=== PATIENT | female | born 1985 | race Caucasian/White ===

== ENCOUNTER 2023-04-13 07:27 | Outpatient (CLI) | payer BC, SELFPAY | END 2023-04-13 07:28 | disposition home or self-care (01) | LOC: NFLDREF 04-14 12:29 | PROVIDERS: PCP Family Medicine; Referring Provider Family Medicine; Visit Provider Family Medicine | DX: R53.83 Other fatigue (principal) | CPT/HCPCS: 80053; 83520; 84443 ==

== ENCOUNTER 2024-06-01 11:57 | Outpatient (CLI) | payer BC, SELFPAY | END 2024-06-01 11:58 | disposition home or self-care (01) | PROVIDERS: PCP Family Medicine; Visit Provider Family Medicine | DX: D50.9 Iron deficiency anemia, unspecified (principal) | CPT/HCPCS: 80048; 82728; 83540; 83550 ==

== ENCOUNTER 2024-06-29 11:45 | Outpatient (RCR) | payer BC, SELFPAY ==
--- NOTE | 2024-06-09 10:10 | ONC.NURNOTE ---
Diagnosis: Iron Deficiency Anemia
--- NOTE | 2024-06-12 15:43 | URNOTE ---
PA is not required for Venofer ([id number])
[2024-06-14 13:05] VITALS: BP 103/63; PULSE 80; RESP 19; TEMP 37.1; O2SAT 99
[2024-06-14] MEDS: IRON SUCROSE COMPLEX 200 MG in 0.9 % SODIUM CHLORIDE 100 ml 100 ML 440 MG IVPB (13:37)
[2024-06-14 13:55] VITALS: BP 114/59; PULSE 69; RESP 16; O2SAT 99
[2024-06-16 13:10] VITALS: BP 109/57; PULSE 88; RESP 22; TEMP 36.2; O2SAT 98
[2024-06-16] MEDS: IRON SUCROSE COMPLEX 200 MG in 0.9 % SODIUM CHLORIDE 100 ml 100 ML 440 MG IVPB (13:31)
[2024-06-16 13:50] VITALS: BP 110/73; PULSE 70; RESP 16; O2SAT 98
[2024-06-20 13:00] VITALS: BP 107/72; PULSE 98; RESP 16; TEMP 36.4; O2SAT 98
[2024-06-20] MEDS: IRON SUCROSE COMPLEX 200 MG in 0.9 % SODIUM CHLORIDE 100 ml 100 ML 440 MG IVPB (13:16)
[2024-06-20 13:30] VITALS: BP 111/74; PULSE 97; RESP 16; TEMP 36.7; O2SAT 98
[2024-06-20 14:05] VITALS: BP 104/71; PULSE 98; RESP 16; TEMP 36.5; O2SAT 97
[2024-06-27 13:05] VITALS: BP 114/77; PULSE 75; RESP 18; TEMP 35.8; O2SAT 98
[2024-06-27] MEDS: IRON SUCROSE COMPLEX 200 MG in 0.9 % SODIUM CHLORIDE 100 ml 100 ML 440 MG IVPB (13:15)
[2024-06-27] MEDS: SODIUM CHLORIDE 0.9 % (FLUSH) 10 ML SYRINGE IVF (13:16)
[2024-06-27 13:55] VITALS: BP 114/74; PULSE 84; RESP 16; TEMP 36.5; O2SAT 98
[2024-06-29 11:52] VITALS: BP 119/70; PULSE 82; RESP 18; TEMP 36.4; O2SAT 98
[2024-06-29] MEDS: SODIUM CHLORIDE 0.9 % (FLUSH) 10 ML SYRINGE IVF (12:37)
[2024-06-29] MEDS: IRON SUCROSE COMPLEX 200 MG in 0.9 % SODIUM CHLORIDE 100 ml 100 ML 440 MG IVPB (12:39)
[2024-06-29 13:30] VITALS: BP 120/83; PULSE 86; RESP 14; TEMP 36.6; O2SAT 98
== END 2024-12-11 23:59 | disposition home or self-care (01) ==
LOC: CCIC 11:45
PROVIDERS: PCP Family Medicine; Referring Provider Family Medicine; Visit Provider Family Medicine
DX: D50.9 Iron deficiency anemia, unspecified (principal)
CPT/HCPCS: 96365; 96374; J1756; J7050

== ENCOUNTER 2024-12-20 08:41 | Outpatient (CLI) | payer BC, SELFPAY | END 2024-12-20 08:42 | disposition home or self-care (01) | PROVIDERS: PCP Family Medicine; Visit Provider Family Medicine | DX: Z13.9 Encounter for screening, unspecified (principal); R53.83 Other fatigue | CPT/HCPCS: 80048; 80061; 82728; 85025 ==

== ENCOUNTER 2025-02-13 10:01 | Emergency (ER) | payer BC, SELFPAY ==
[2025-02-13 10:14] VITALS: BP 124/79; PULSE 90; RESP 16; TEMP 36.3; O2SAT 99
--- OUTSIDE RECORDS SUMMARY | 2025-02-13 10:16 | XMS_ITS | Clinical Summary ---
Author Organization [employer] [facility] Address [facility] [place] [address] Care Team Providers Care Assistant Chief Engineer Name Role Phone Susanne Ignacio MD Unavailable [phone] Corinne Cueto NP Unavailable Rayray Garibay MD Primary Care Provider + Allergies Active Allergy Reactions Criticality Noted Date Comments Amoxicillin Other - Describe In Comment Field Low 06/19/2013 Resistant ##No similarities in side chains, very low to no risk of cross-sensitivity to ANCEF. ANW Antimicrobial Stewardship Team 12/2018 Azithromycin Rash 06/19/2011 Has had recently w/ no reaction Sodium Hypochlorite Solution Shortness Of Breath,Throat Swelling/Closing,A ngioedema,Cough,Fl ushing,Hives,Rash, Runny Nose High 01/09/2020 Sulfa (Sulfonamide Antibiotics) Rash Low 06/19/2013 Medications valACYclovir (VALTREX) 1 gram tabletIndications: Herpes simplex vulvovaginitis Take 1 tablet by mouth once daily. 90 tablet 3 05/04/19 18 Active Additional Information Patient taking differently:1 g Oral DAILY,Will start at 36 weeks, Informant: Patient's Recall, Reported on 01/31/2020 escitalopram oxalate (LEXAPRO) 20 mg tablet Take 20 mg by mouth at bedtime. 06/18/19 19 Active buPROPion (WELLBUTRIN XL) 300 mg Extended-Release tablet TK 1 T PO D 09/20/19 20 Active Xarelto 10 mg tabletIndications: Thoracic outlet syndrome,Deep vein thrombosis (DVT) of axillary vein of right upper extremity, unspecified chronicity (HC) TAKE 1 TABLET BY MOUTH EVERY DAY 30 Tablet 11 11/05/19 22 Active EPINEPHrine (EPIPEN) 0.3 mg/0.3 mL auto-injector 06/17/19 22 Active LORazepam (Ativan) 0.5 mg tab Take 1 mg by mouth at bedtime if needed. Active Active Problems Patient Care Coordination No te Formatting of this note migh t be different from the original. There is a resolved Delivery Plan of Care which has been moved to a progress note under Case Management tab dated 04/20/18 by Cira Birmingham RN .................... 04/20/2018 9:36 AM Problem Noted Date Diagnosed Date Depression 02/05/2020 Tobacco dependency 02/05/2020 Overview (02/05/2020): IMO Update 12/23 Thoracic outlet syndrome 01/31/2020 S/P Repeat section 04/13/2018 [facility] Supervision of high-risk 8 Overview (04/05/2018): [facility] OB PATIENT (CONSULT: 12/01/17, DEJAH to [facility] on 03/01/18) There is an inpatient plan of care available for this patient. NEXT VISIT ALERTS: 04/06: Written instructions for C/S needed at H&P visit. C/ 0730 04/13/[address] Jacobs -- DO NOT EXCISE OR REMOVE MESH, JUST CUT RIGHT THROUGH AND CLOSE BACK UP PLANS & FUTURE APPOINTMENTS: - OB visits through: 04/06/18. Needs Weekly TESTING PLAN: No more testing needed per Dr. Lopez 03/17/18 Growth WNL - Testing through: 04/06/18 GROWTH PLAN: serial assessments of growth at 28 weeks and 34 weeks - Next Growth U/S: 03/17/18 DELIVERY PLAN: Repeat LTCS - Scheduled delivery: 04/13/[address] at [address] Burroughs from general surgery - Preferred delivery location: [place] PRIMARY DIAGNOSIS: 32 y.o. 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 (Negative for malignancy) - MESH IN PLACE Hx Axillary DVT secondary to Thoracic outlet syndrome status post first rib resection Hx C/S 2015 39w5d - intolerance/IUGR Hx SAB X 2 Pelvic deformity-left rotated 30 degrees Hx cryotherapy to cervix Genital HSV ADHD Anxiety LAST GROWTH: 03/17/18 35w3d EFW 2685 grams, percentile = 41% 01/28/18 28w5d EFW 1264 grams, percentile: 40 (PCP) 12/01/17 20w2d EFW 353 grams, percentile: 52 09/10/17 8w4d REFERRING PHYSICIAN/PHONE/LAST UPDATE: Rayray Garibay [facility] [phone] Primary MD approves scheduling of recommended ultrasounds/testing: Not specified SPECIALISTS/CONSULTS: General Surgeon Dr Honorio Jacobs performed Wide local excision of left lower abdominal wall desmoid tumor with complex reconstruction. MATERNAL CARE COORDINATION: Ruby Johnson RN, [id number]; Cira Birmingham RN [id number] MPP MOMS Maternal Care Coordination Chart review completed 03/25/18 JIM signed for [facility]: BINDERY PRODUCTION MANAGER: STANLEY Mehta, Maternal Care Straddle Buggy Operator, [facility] [phone] - Chart Reviewed 03/01/2018 Last seen 03/01/2018 GENETICS: Not completed PROCEDURES: PERTINENT MEDS: ASA - stop at 36 weeks 03/21/18 Lexapro Valtrex-Will start on 03/21/18 ROUTINE OB: Flu vaccine: Declined Tdap vaccine given: 02/15/18 ANXIETY/DEPRESSION SCREEN: Initial screen: Date: 03/01/18 PHQ-9 score: 4 DEBORAH-7 score:12 Previous history of anxiety or depression? YES ROUTINE LABS: Blood type: A Positive Antibody screen: Negative Last pap: 10/12/17: NIL Gestational Diabetes screenin01/28/18: GCT: 93 Treponema Pallidum drawn: 01/28/18: Negative GBS: 03/23/18: Negative Hemoglobin: Initial: 10/12/17: 12.1 28 wk: 01/28/18: 11.1 36 wk 03/17/18-11.0 ADDITIONAL PERTINENT LABS: 03/17/18 PIH labs drawn. Hgb-11.0, Platelets-278,000, Creatinine-5.9 AST-17 PCR- 0.2 PPTL& DELIVERY SCHEDULING: PPTL: Would like TOLAC but considering if she needs repeat C/. Is Medical assistance? No PPTL Permit signed: Date: Scanned date: CHECKLIST FOR SCHEDULING PROCEDURES: Call [phone] for [place] and [phone] for [employer] (UTD cerclages L&D 99942 or Day Surgery [phone]) Procedure: C/ Hospital: [place] Unit: L&D Date & Time of procedure: 0704/13/18 Pertinent information: Dr. Burroughs general surgery will be present for Gestational age on procedure date? 39 04/21 MD doing procedure: DW Date scheduled: 03/25/2018 when patient was 36w4d. Scheduling MD & RN: JOVAN Notifications: Hospitalist Delivery-OBH rehabilitation attendant notified through [employer] inbox? Yes [facility] MD rehabilitation attendant notified via [employer] inbox? Yes Primary MD notified via [employer] inbox? Not Applicable Primary MD clinic called if not [employer] Not Applicable On [facility] calendar? Yes Care Coordination notified? Yes H&P/PPTL: PPTL permit signed? H&P and Plan in chart? [facility] appointment made for H&P with INTERVENTIONAL RADIOLOGIST within 30 days of surgical procedure? Date: Patient notification: Patient notified of procedure date? Yes Written admission instructions given to patient via AVS? No PLAN OF CARE: Plan: 03/01/18 Dr. Jakcelin Lomas Return Appointments: OB Care - Every 2 weeks from 28 to 36 weeks. - Every week from 36 weeks until delivery. Ultrasound/Testing -Follow-up assessment of growth in 2 weeks due to prior history of affected by growth restriction. -No indication for antepartum testing as growth assessments up to this point have shown normal growth. We will determine the need for ongoing testing based on the results of the next growth ultrasound in 2 weeks. Meds - vitamins -Initiate Valtrex therapy at 36 weeks gestational age -Continue daily aspirin 81 mg until 36 weeks gestational age then discontinue Delivery -We again discussed the mode of delivery today and had a very similar discussion as we did at the time of our initial consultation in November 2017. We discussed that in patients with a prior history of delivery 1, typically the decision is left to the patient to decide if she would like an elective repeat delivery versus a trial of labor after . We discussed the risks benefits and alternative options to both modes of delivery. From my perspective I do see benefit in a trial of labor after as I do believe a will be much more complicated than typically encountered secondary to the level of anterior abdominal wall surgery as well as the size and placement of the mesh. We reviewed in detail risks of trial of labor after including uterine rupture (0.5%) which may double with the use of Pitocin (1%). We also discussed intrapartum pain management options including epidural analgesia. We also discussed close monitoring of her labor progress with plan to proceed with delivery for the routine obstetric indications as needed. She voiced concern about her ability to push for delivery. We discussed the option of laboring down to minimize maternal expulsive effort. In addition we also discussed the potential for assisted second stage of delivery should this be clinically indicated at the time of delivery. We also discussed that should obstetric emergency arise that a fasting efficient emergency delivery may not be achievable given the presence of abdominal wall mesh and scar tissue from prior abdominal surgeries. We reviewed the TOLAC consent form in great detail today and the patient has elected to proceed with a trial of labor after section. The told that consent form was signed and will be scanned into her chart. She is aware that she is able to change her mind at any given point should her clinical picture change. Should delivery be required we discussed the potential need for general surgery presence due to the large anterior abdominal wall mesh. Given the need for multidisciplinary care as well as the distance the patient lives from the hospital I do see an advantage for planned induction of labor. We discussed that spontaneous labor is preferable in the setting of TOLAC. It would be reasonable to allow for this up to her due date. Should 40 weeks be achieved and delivery has not occurred, I would proceed with IOL at 40 weeks. She would prefer to deliver at [facility]. 12/01/17 ML Recommendations: -With regard to her history of prior left lower abdominal quadrant desmoid tumor, we discussed that historically these are thought to be estrogen responsive and that recurrence rates may be higher as a result of the high estrogen state of . She plans to follow-up with Dr. Jacobs during this to monitor for any signs of recurrent desmoid tumor. Her main concern regarding this history and her prior abdominal surgery is how this would affect her delivery planning. We discussed that in patients with a prior history of delivery 1, typically the decision is left to the patient to decide if she would like an elective repeat delivery versus a trial of labor after . At this point in time the patient is open to discussion regarding mode of delivery and does not have her heart set either mode. We discussed the risks benefits and alternative options to both modes of delivery. From my perspective I do see benefit in a trial of labor after delivery as I do believe a will be much more complicated than typically encountered secondary to the level of anterior abdominal wall surgery as well as the size and placement of the mesh. We reviewed in detail risks of trial of labor after including uterine rupture (0.5%) which may double with the use of Pitocin. I do not believe that her prior history of desmoid tumor or anterior abdominal wall surgery is a primary indication for delivery. I answered all of Cathryn's questions to her stated satisfaction and at this point in time she agrees and sees benefit to trial of labor after delivery. -Recommend initiation of aspirin 81 mg daily for preeclampsia risk reduction related to her prior history of elevated blood pressures in the setting of growth restriction at term. In addition this may also provide some benefit with regard to her history of prior DVT. -Due to her history of prior affected with growth restriction I recommend serial assessments of growth at 28 weeks and 34 weeks. These can be done locally at your office for patient convenience. In addition I recommend weekly testing starting at 32 weeks gestational age. -Nancy also had questions regarding her antidepressant medication. She has not been comfortable taking the Lexapro in this secondary to concerns for effects on baby. I gave her reassurance that Lexapro can be continued to be taken safely in and that I would continue this therapy throughout the and into the period to maintain a balance of her mental health. She verbalized understanding of this counseling -Per our conversation by phone today he will continue to receive routine obstetric care in your office as well as follow-up growth ultrasounds and testing. We will plan for full transfer of care to [place] [facility] for ongoing management and delivery at [facility]. Transfer of care can take place at 34-35 weeks gestational age or sooner as needed based on maternal or indications. Thank you for allowing us to participate in the care of you patient. Please do not hesitate to call with any additional questions or concerns regarding her care. Desmoid tumor of abdominal wall determined by bi opsy 04/30/2016 Generalized anxiety disorder 04/30/2016 Attention deficit hyperactiv ity disorder (ADHD), predominantly inattentive type 05/03/2015 Headache 10/15/2013 Migraine with aura 08/13/2013 Gastroesophageal reflux disease without esophagi tis 07/01/2013 Vitamin D deficiency 04/24/2013 Deep vein thrombosis (DVT) of upper extremity Overview (08/11/2017): Overview: Acute Venous Embolism and Thrombosis of Deep Veins of Upper Extremity Abdominal pain affecting Anemia Resolved Problems Problem Noted Date Diagnosed Date Resolved Date Anxiety 05/03/2015 04/30/2016 10/10/2013 10/15/2013 heart rate deceleratio ns affecting management of mother 10/10/2013 05/03/2015 Immunizations Immunization Administration Dates Next Due COVID-19 vaccine (Moderna 100mcg/0.5mL) BEAU MESSER 04/01/2020 Hepatitis B (Adult) 11/26/2016,01/24/2008 Hepatitis B, Unspecified 11/17/2011 MMR 01/24/2008,07/12/1997 Tdap 02/15/2018, 4,01/24/2008,1997 Tuberculin (PPD) 11/26/2016 Family History Medical History Relation Name Comments Good Health Brother Heart Disease Father heart attack a t 46 yo Hyperlipidemia Father Hypertension Father Hypertension Maternal Grandmother Cancer Paternal Grandfather brain Heart Disease Paternal Grandfather Cancer Paternal Grandmother lung ca ncer Diabetes Paternal Grandmother Heart Disease Paternal Grandmother Hypertension Paternal Grandmother Stroke Paternal Grandmother Diabetes Paternal Uncle Relation Name Status Comments Brother Alive Father Alive Maternal Grandmother Mother Alive Paternal Grandfather Paternal Grandmother Paternal Uncle Social History Tobacco Use Types Packs/Day Years Used Date Smoking Tobacco: Former Cigarettes 1 10 0 05/27/2001 - 05/28/2011 Smokeless Tobacco: Never Tobacco Cessation:Counseling Given: Yes Comments:social/stress smoking Alcohol Use Standard Drinks/Week Comments No 0 (1 standard drink = 0.6 oz pur e alcohol) seldom PHQ-2 Answer Date Recorded PHQ-2 Score 0 05/15/2018 Social Connections Answer Date Recorded Frequency of Communication with Friends and Fami ly Not on file 03/05/2021 Financial Resource Strain Answer Date R ecorded Difficulty of Paying Living Expenses Not on file 03/05/2021 Difficulty of Paying Living Expenses Not on file 03/05/2021 Comments No Sex and Gender Information Value Date Recorded Sex Assigned at Not on file 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 Gender Identity Not on file Sexual Orientation Not on file Occupation Industry Job Start Date Job End Date [employer] Not on file Not on file Not on guru e Obstetrics History Para Term AB IAB SAB Ectopic Multiple Livin g Live Births 4 2 2 2 2 2 2 Date Outcome GA Total Labor Labor/2nd/3rd Weight Sex Type Anes PTL Karin A1 A5 Name Clin 2008 SAB 6w0 d U SPONTA NEOUS 2013 Term 39w 5d 2.31 kg (5 lb 1.5 oz) M CS-LTr anv Epidur al N Livin g 8 9 Hudso n Complications: Intolera nce Delivery [facility] 2015 SAB 6w0 d Demis e 2018 Term 39w 2d 0h 04m 3.4 kg (7 lb 8 oz) F C-Sect ion Spinal Livin g 8 8 PAQUE TTE,B G DONNA RINE Delivery Location:[facility] (UTD 2000 MB L&D TRIAGE) Last Filed Vital Signs Vital Sign Reading Time Taken Comments Blood Pressure 98/54 06/24/2023 3:18 PM CDT Pulse 81 06/24/2023 3:18 PM CDT Temperature 36.7 C (98.1 F) 06/24/2023 3:18 PM CDT Respiratory Rate 14 06/24/2023 3:18 PM CDT Oxygen Saturation 98% 06/24/2023 3:18 PM CDT Inhaled Oxygen Concentration - - Weight 107.5 kg (237 lb 1.6 oz) 06/24/2023 3:18 PM CDT Height 165.1 cm (5' 5) 08/27/2020 8:46 AM CDT Body Mass Index 39.46 08/27/2020 8:46 AM CDT Plan of Treatment Health Maintenance Due Date Last Done Comments HIV for age 15-65 2000 Hepatitis C screening for age 18-79 11/01/2003 HPV series for age 9-45 (1 - 3-dose SCDM series) 2012 Depression screening for age 12+ 04/27/2019 04/27/2018, 03/02/2018, 03/01/2018, Additional history exists Pap test for age 21-65 10/12/2020 8, 05/03/2015, 11/21/2013 BMI (ht and wt on same day) for age 18+ 03/25/2021 03/25/2020, 01/09/2020, 10/05/2019, Additional history exists COVID-19 vaccine series (2024- season) 2024 04/29/2020, 04/01/2020 Influenza Vaccine (#1) 2024 Tetanus booster 02/16/2028 02/15/2018, 07/14, 01/24/2008, Additional history exists RSV vaccine for adults or (1 - 1-dose 75+ series) 2060 Hepatitis B series for 19+ Completed 11/26, 11/17/2011, 01/24/2008 Pneumococcal series for age 6-49 Aged Out No longer eligible based on patient's age to complete this topic Medical Devices Implanted Type Area Clinical Educator Device Identifier Shelf Expiration Date Model / Serial / Lot Mesh Ventral 7x9in Ventralightst - [id number] Implanted:Qty: 1 on 05/07/2016 by Honorio Jacobs MD at [facility] Left: Abdomen [employer] 02/09/2017 [id number] / / [id number] Procedures Procedure Name Priority Date/Time Associated Diagnosis Comments FARM SERVICE CONSULTANT THIN PREP PAP SCREEN IMAGED Routine 10/12/2017 5:30 PM CDT Screening for malignant neoplasm of cervix from Last 3 Months or Most Recently Relevant to Health Maintenance Results * FARM SERVICE CONSULTANT THIN PREP PAP SCREEN IMAGED (10/12/2017 5:30 PM CDT) Case Report Gynecologic Cytology Report Case: [id number] Authorizing Provider: Rayray Garibay MD Collected: 10/12/2017 6873 Ordering Location: [facility] Received: 10/12/2017 1730 Clinic First Screen: Hung Purcell Specimen: FARM SERVICE CONSULTANT ThinPrep Vial Screening, Cervical 10/24/2017 9:29 AM CDT [facility] [employer] [facility] EN[facility]AL LAB[facility] INTERPRETATION/ RESULT NEGATIVE FOR INTRAEPITHELIAL LESION OR MALIGNANCY (NIL) (none) 10/24/2017 9:29 AM CDT [facility] at 0929 CDT SPECIMEN ADEQUACY Satisfactory for evaluation Endocervical component present 10/24/2017 9:29 AM CDT [facility] [employer] [facility] ENTRAL LAB[facility]ATORY HPV REQUEST HPV if ASCUS 10/24/2017 9:29 AM CDT [facility] [employer] [facility] Date of LMP 07/19/17 10/24/2017 9:29 AM CDT [facility] Last Pap Date 05/03/15 10/24/2017 9:29 AM CDT [facility] Last Pap Result NIL 8 9:29 AM CDT [facility] [employer] [facility] EN[facility]AL LAB[facility]ORY Abnormal Pap or [place] Bx in last 5 years No 10/24/2017 9:29 AM CDT [facility] [employer] [facility] Menstrual Status 10/24/2017 9:29 AM CDT [facility] [employer] [facility] ENTRAL LAB[facility]ORY [place] Bx Done Today No 10/24/2017 9:29 AM CDT [facility] ENTRAL LABORATORY Additional Information None given 10/24/2017 9:29 AM CDT [facility] [employer] [facility] Automated Review Successful 10/24/2017 9:29 AM CDT [facility] EN[facility] Comment:Specimen processed s uccessfully by automated waste/materials exchange specialist device, ThinPrep Imaging System, [employer] Note The pap test is a screening technique, not a diagnostic procedure. It is used primarily to screen for squamous cancers and precursor lesions. Published studies have shown that it is subject to both false negative and false positive results. The pap test should not be used as the sole means to diagnose or exclude pre-malignant and malignant lesions. Cytology is screened and interpreted at [facility], [facility] Laboratory - [address] [facility] [address], [place] [address] and [facility] - [address]; [place] [address] and [facility] - [address]; [place] [address] and [facility] [address]; [place] [address] 10/24/2017 9:29 AM CDT [facility] ENTRAL LABORATORY Other (Cervical) Non-Blood / Unknown 10/12/2017 5:30 PM CDT 10/12/2017 5:30 PM CDT us Rayray Garibay MD PATHOLOGY/CYTOLOGY Final Result [facility]ORY [address] [place] [address], [place] from Last 3 Months or Most Recently Relevant to Health Maintenance Insurance [employer]ium Digium Advance Directives * Full Code (Latest Code Status on File) Date Activated Date Inactivated Comments 02/05/2020 6:18 AM 02/06/2020 1:25 PM Question Answer Comments Code Status Discussion: Not Discussed * Full Code Date Activated Date Inactivated Comments 11/07/2019 9:57 AM 11/07/2019 3:48 PM Question Answer Comments Code Status Discussion: Discussed * Full Code Date Activated Date Inactivated Comments 04/13/2018 5:31 AM 04/15/2018 2:40 PM * Full Code Date Activated Date Inactivated Comments 05/07/2016 12:30 PM 05/10/2016 1:01 PM * Full Code Date Activated Date Inactivated Comments 10/15/2013 4:15 PM 10/16/2013 12:52 PM Care Teams Assistant Chief Engineer Relationship Specialty Start Date End Date Rayray Garibay MD [address] [place] [address] PCP - General Family Practice 12/02/22 Susanne Ignacio MD [address] [place] [id number] Oncology Hematology and Oncology 10/11/19 Corinne Cueto, INTERVENTIONAL RADIOLOGIST [address] [place] [address] [place] [address] Oncology Nurse Practitioner - Family 10/11/19
--- OUTSIDE RECORDS SUMMARY | 2025-02-13 10:16 | XMS_ITS | Clinical Summary ---
Author Organization [facility] Address [address] [address] Phone Care Team Providers Care Fitting Room Supervisor Name Role Phone Unavailable Primary Care Provider Unavailabl e Allergies Active Allergy Reactions Criticality Noted Date Comments Azithromycin Dihydrate RASH 06/29/2011 Medications PROAIR HFA 108 (90 BASE) MCG/ACT inhaler INH, PRN as needed for wheezing, Refills: 0, 07/19/08 18:58:06, Substitution Permitted, current med (Hx) 0.000 0 9 Active warfarin (COUMADIN) 5 MG tabletIndicatio ns:Paget-Schroe tter syndrome Take 2 Tabs by mouth one time a day. 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 Abdominal pain 02/09/2011 Lumbago 02/09/2011 Overview (07/04/2011): IMO Update 12/23 Depression Hip pain, left Overview (07/04/2011): IMO Update 12/23 Shoulder dislocation Overview (07/04/2011): IMO Update 12/23 Subclavian vein thrombosis, left Overview (07/04/2011): IMO Update 12/23 Tobacco abuse Overview (07/04/2011): IMO Update 12/23 Resolved Problems Problem Noted Date Diagnosed Date Resolved Date Subclavian vein thrombosis, left 06/12/2011 06/12/2011 Overview (07/04/2011): IMO Update 12/23 Medical History Medical History Date Comments Depression Hip pain, left Shoulder dislocation Subclavian vein thrombosis, left (HCC) Paget-Schroetter syndrome Tobacco abuse Family History Medical History Relation Comments Diabetes Paternal Grandmother Neuro Disease Paternal Grandmother Relation Status Comments Paternal Grandmother Social History Tobacco Use Types Packs/Day Years Used Date Smoking Tobacco: Former Cigarettes Smokeless Tobacco: Never Tobacco Cessation:Ready to Q uit: Yes; Counseling Given: Yes Alcohol Use Standard Drinks/Week Comments Yes 0 (1 standard drink = 0.6 oz pur e alcohol) very occassionally Comments No Sex and Gender Information Value Date Recorded Sex Assigned at Not on file 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 Gender Identity Not on file Sexual Orientation Not on file Last Filed Vital Signs Vital Sign Reading Time Taken Comments Blood Pressure 114/62 07/06/2011 2:45 PM CDT Pulse 76 07/06/2011 2:45 PM CDT Temperature 36.6 C (97.8 F) 07/06/2011 2:45 PM CDT Respiratory Rate 16 07/06/2011 2:45 PM CDT Oxygen Saturation 99% 06/05/2011 1:35 PM CDT Inhaled Oxygen Concentration - - Weight 72 kg (158 lb 11.2 oz) 07/06/2011 2:45 PM CDT Height 167.6 cm (5' 6) 06/12/2011 8:52 AM CDT Body Mass Index 25.61 06/12/2011 8:52 AM CDT Plan of Treatment Health Maintenance Due Date Last Done Comments Cervical Cancer Screening 1985 Last pap w/ HPV Testing 1985 Last pap w/o HPV Testing 1985 Hepatitis B Vaccine (Standin g Order) (1 of 3 - 19+ 3-dose series) 2004 PERTUSSIS (Standing Order) 2004 TETANUS (Standing Order) 2004 COVID-19 Single Dose 11/13/2024 Influenza Vaccine Seasonal (Standing Order) (#1) 2024 HPV Vaccine (Standing Order) Aged Out No longer eligible based on patient's age to complete this topic Pneumococcal/PCV20 Vaccine: Pediatrics (2-5 yrs) and At-Risk Patients (6-49 yrs) (Standing Order) Aged Out No longer eligible b ased on patient's age to complete this topic Insurance [facility] [place] Advance Directives For more information, please contact: [phone] * Full Code (Latest Code Status on File) Date Activated Date Inactivated Comments 06/04/2011 6:58 PM 06/05/2011 6:29 PM
--- NOTE | 2025-02-13 11:01 | ED_ITS ---
HPI - Abdominal Pain General Chief Complaint: Abdominal Pain Stated Complaint: Abdominal pain Time Seen by Provider: 02/13/25 10:32 History of Present Illness HPI narrative: This 39-year-old female comes in with rather sudden onset of severe abdominal pain in the right upper quadrant. She states that it seemed to be somewhat oppositional and now reports that it is much better. She reports that she is taking semaglutide and has lost over 100 lb. She did not have anything to eat this morning. She has not had pain like this in the past. She arrives here with normal vital signs. Related Data Home Medications ?Medication ?Instructions ?Recorded ?Confirmed cholecalciferol (vitamin D3) PO 12/08/23 12/20/24 [Vitamin D3] magnesium PO 12/08/23 12/20/24 Previous Rx's ?Medication ?Instructions ?Recorded lorazepam 1 mg tablet 1 mg PO BID PRN anxiety #30 tabs 06/19/22 valacyclovir 500 mg tablet 2,000 mg (4 x 500 mg) PO DA DENIS PRN 06/19/22 outbreak 1 day #30 tabs epinephrine 0.3 mg/0.3 mL 0.3 ml IM ONCE PRN anaphylax is #2 11/13/22 injection, auto-injector ea escitalopram oxalate 20 mg tablet 20 mg PO DAILY #90 t abs 12/09/23 tirzepatide 2.5 mg/0.5 mL 2.5 mg (0.5 mL) subcut QWEEK #2 mL 12/09/23 subcutaneous pen injector (Chani) rivaroxaban 15 mg tablet 15 mg PO DAILY #90 tabs 09/12 10/06 lisdexamfetamine 20 mg capsule 20 mg PO QAM #14 caps 1 (Vyvanse) lisdexamfetamine 30 mg capsule 30 mg PO QAM #30 caps 1 (Vyvanse) bupropion HCl 300 mg 24 hr tablet, 300 mg PO DAILY #90 tabs 01/03/25 extended release meloxicam 15 mg tablet 15 mg PO QDAY #90 tabs 01/16 ketorolac 10 mg tablet 10 mg PO TID 5 days #15 tabs 02/13/25 Allergies Allergy/AdvReac Type Severity Reaction Status Date / Time Bleach (Sodium Hypochlorite) Allergy Severe Anaphylaxis Verified 02/13/25 10:18 amoxicillin Allergy Mild Rash Verified 02/13/25 10:18 Sulfa (Sulfonamide Allergy Mild Rash Verified 02/13/25 10:18 Antibiotics) Review of Systems Status of ROS Reports: 10 or more systems reviewed and unremarkable except as noted in History and below Narrative Constitutional: No fevers, no weight gain or loss. Eyes: No discharge. No vision changes. HENT: No congestion, no sore throat, no ear pain. Cardiovascular: No chest pain, no palpitations. Respiratory: No shortness of breath, no wheezes, no cough. Gastrointestinal: No vomiting, no diarrhea. Abdominal pain as described above. Genitourinary: No dysuria, no hematuria. Musculoskeletal: Normal range of motion. Skin: No rashes, no pruritis. Neurological: No dizziness, weakness, sensory change, speech change. Endo/Heme/Allergies: No bruising or bleeding. No polydipsia. Pysch: no suicidality, no anxiety, no insomnia. All other systems reviewed and are negative. [facility] Medical History (Updated 02/13/25 @ 11:04 by Samy Lopez MD) ADHD (attention deficit hyperactivity disorder), combined type ?F90.2 - Attention-deficit hyperactivity disorder, combined type (ICD-10) Herpes labialis ?B00.1 - Herpesviral vesicular dermatitis (ICD-10) Major depression, recurrent ?F33.9 - Major depressive disorder, recurrent, unspecified (ICD-10) Thoracic outlet syndrome associated with cervical rib (01/31/20) ?G54.0 - Brachial plexus disorders (ICD-10) ?Q76.0 - Spina bifida occulta (ICD-10) Attention deficit hyperactivity disorder (ADHD) (05/03/15) ?F90.9 - Attention-deficit hyperactivity disorder, unspecified type (ICD-10) Vitamin D deficiency ?E55.9 - Vitamin D deficiency, unspecified (ICD-10) Migraine with aura ?G43.109 - Migraine with aura, not intractable, without status migrainosus (ICD-10) GERD (gastroesophageal reflux disease) ?K21.9 - Gastro-esophageal reflux disease without esophagitis (ICD-10) Thoracic outlet syndrome ?G54.0 - Brachial plexus disorders (ICD-10) DEBORAH (generalized anxiety disorder) ?F41.1 - Generalized anxiety disorder (ICD-10) Deep vein thrombosis (DVT) of brachial vein of left upper extremity ?I82.622 - Acute embolism and thrombosis of deep veins of left upper extremity (ICD-10) Desmoid tumor of abdomen ?D48.1 - Neoplasm of uncertain behavior of connective and other soft tissue (ICD-10) Surgical History (Reviewed 01/07/22 @ 14:09 by Kendal Rangel ~ APPLICATIONS SALES REPRESENTATIVE, APPLICATIONS SALES REPRESENTATIVE) H/O resection of rib ?Z98.890 - Other specified postprocedural states (ICD-10) H/O eye surgery ?Z98.890 - Other specified postprocedural states (ICD-10) H/O section ?Z98.891 - History of uterine scar from previous surgery (ICD-10) Social History (Updated 12/08/23 @ 11:01 by Carolyn Umanzor ~ FILM PROCESSING SHIFT SUPERVISOR, FILM PROCESSING SHIFT SUPERVISOR) Narrative: , two kids, non-smoker, 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 What is your current living situation?: I presently have a place to live Problems where you live: no known problems In the past 12 months, utilities in danger of being shut off: no In past 12 months, lack of transportation kept you from medical appts, meetings, work, or getting things needed for daily living: no In the past 12 mos, have been you worried that your food would run out before you had money to buy more?: never true In the past 12 mos, the food you bought just didn't last and you didn't have money to buy more?: never true Smoking Status: Former smoker How often does anyone, including family, friends and others, physically hurt you : never How often does anyone, including family, friends and others, insult or talk down to you: never How often does anyone, including family, friends and others, threaten you with harm: never How often does anyone, including family, friends and others, scream or curse at you: never Exam Narrative: Exam Narrative: Constitutional: Well-developed, well-nourished, no acute distress. HEENT: Normocephalic, atraumatic. Neck: Normal range of motion. Nontender. Supple. Heart: Regular. No murmurs. Normal rate. Intact distal pulses. Lungs: Clear to auscultation. No chest discomfort. No wheezes, rhonchi, or rales. Abdomen: Normal bowel sounds. Mild tenderness currently in the right upper quadrant. No rebound tenderness. Genitalia: Deferred. Back: No midline tenderness. Normal range of motion. Extremities: Normal range of motion. No injury. Skin: Intact. No rash. Warm. No erythema or pallor. Neurologic: No altered sensation. No weakness. Alert and oriented. Psychiatric: No suicidality. No anxiety or depression. No insomnia. Nursing notes and vitals signs are reviewed. Const: Vital Signs, click to edit/add: Vital Signs - 24 hr 02/13/25 10:14 Temperature 97.4 F L Pulse Rate [Pulse Oximeter] 90 Respiratory Rate 16 Blood Pressure [Ri ght Upper Arm] 124/79 Pulse Oximetry 99 Oxygen Delivery Me thod Room Air Course Vital Signs Vital signs: Initial Vital Signs Temperature 97.4 F L 02/13/25 10:14 Temperature Source Temporal Artery Scan 02/13/25 10:14 Pulse Rate 90 02/13/25 10:14 Respiratory Rate 16 02/13/25 10:14 Blood Pressure 124/79 02/13/25 10:14 Blood Pressure Mean 94 02/13/25 10:14 Blood Pressure Position Sitting 02/13/25 10:14 Pulse Oximetry 99 02/13/25 10:14 Oxygen Delivery Method Room Air 02/13/25 10:14 Vital Signs Temperature 97.4 F L 02/13/25 10:14 Pulse Rate 90 02/13/25 10:14 Respiratory Rate 16 02/13/25 10:14 Blood Pressure 124/79 02/13/25 10:14 Pulse Oximetry 99 02/13/25 10:14 Oxygen Delivery Method Room Air 02/13/25 10:14 Temperature 97.4 F L 02/13/25 10:14 Pulse Rate 90 02/13/25 10:14 Respiratory Rate 16 02/13/25 10:14 Blood Pressure 124/79 02/13/25 10:14 Pulse Oximetry 99 02/13/25 10:14 Oxygen Delivery Method Room Air 02/13/25 10:14 MDM - Abdominal Pain MDM Narrative Medical decision making narrative: This patient comes in reporting rather severe and sudden onset of right upper quadrant abdominal pain that is mostly dissipated now. She arrives with normal vital signs. I did use bedside ultrasound to evaluate her gallbladder and sought normal findings of her gallbladder and common bile duct. I did also discuss other lab and imaging options available but this was reassuring enough for the patient who is feeling better. She is okay to be discharged home. She did receive a prescription for Toradol. Discharge Plan Discharge Clinical Impression: Abdominal pain Patient Disposition: Home, Self-Care Condition: Improved Additional Instructions: Continue current plans. Take Toradol as needed and directed. Follow up with MD return if worsening. Prescriptions: New ketorolac 10 mg tablet 10 mg PO TID 5 Days Qty: 15 0RF No Action valacyclovir 500 mg tablet 2,000 mg PO DAILY PRN (Reason: outbreak) 1 Days Qty: 30 5RF lorazepam 1 mg tablet 1 mg PO BID PRN (Reason: anxiety) Qty: 30 0RF cholecalciferol (vitamin D3) [Vitamin D3] PO magnesium PO escitalopram oxalate 20 mg tablet 20 mg PO DAILY Qty: 90 3RF Mounjaro 2.5 mg/0.5 mL pen injector 2.5 mg subcut QWEEK Qty: 2 0RF Rx Instructions: for 4 weeks lisdexamfetamine [Vyvanse] 30 mg capsule 30 mg PO QAM Qty: 30 0RF lisdexamfetamine [Vyvanse] 20 mg capsule 20 mg PO QAM Qty: 14 0RF epinephrine 0.3 mg/0.3 mL auto-injector 0.3 ml IM ONCE PRN (Reason: anaphylaxis) Qty: 2 5RF rivaroxaban 15 mg tablet 15 mg PO DAILY Qty: 90 3RF bupropion HCl 300 mg tablet extended release 24 hr 300 mg PO DAILY Qty: 90 3RF meloxicam 15 mg tablet 15 mg PO QDAY Qty: 90 3RF Follow Up/Referrals: Rayray Garibay MD [Primary Care Provider, Family Practice] Stand Alone Forms: MyHealth Info Instructions Procedures POC Ultrasound Biliary Anatomical areas examined: gallbladder, long and short axis and common bile duct Indications: RUQ/epigastric pain Exam type: limited abdominal ultrasound; RUQ Impression: normal exam Description/Findings: Negative right upper quadrant exam.
[2025-02-13 11:45] LABS: Hematocrit* 38.8 % (33.0-51.0); Hemoglobin* 12.9 gm/dL (12.0-16.0); Immature Granulocytes Abs Auto 0.00 K/uL (0.00-0.30); Immature Granulocytes Pct Auto 0.0 %; Lymphocytes Absolute Auto 2.85 K/uL (0.90-2.90); Mean Corpuscular HGB Conc 33 gm/dL (32-36); Mean Corpuscular Hemoglobin 32 pg (26-34); Mean Corpuscular Volume 95 fL (80-100); RDW Coefficient of Variation % 12.5 % (11.5-15.5); Red Blood Count* 4.08 m/uL (4.00-5.20); White Blood Count* 7.25 K/uL (4.50-11.00)
[2025-02-13 11:46] LABS: Slide Review Reflex No
[2025-02-13 11:58] LABS: Albumin* 4.4 g/dL (3.3-5.0); Chloride* 102 mmol/L (96-114); Potassium* 3.8 mmol/L (3.6-5.1); Sodium* 138 mmol/L (135-149)
[2025-02-13 12:01] LABS: Alanine Aminotransferase* 15 U/L (4-35); Alkaline Phosphatase* 46 U/L (40-150); Anion Gap 11 mEq/L (7-15); Aspartate Amino Transferase* 23 U/L (12-35); Bilirubin Direct* 0.2 mg/dL (0.0-0.5); Bilirubin Total* 0.9 mg/dL (0.1-1.5); Blood Urea Nitrogen* 15 mg/dL (5-24); Carbon Dioxide* 25 mmol/L (20-32); Creatinine* 0.7 mg/dL (0.5-1.5); Estimated Glomerular Filt Rate 113 ml/min; Total Protein* 7.0 g/dL (6.0-8.3)
[2025-02-13 12:02] LABS: Calcium* 8.7 mg/dL (8.4-10.6); Glucose* 85 mg/dL (60-115)
== END 2025-02-13 11:56 | disposition home or self-care (01) ==
PROVIDERS: Emergency Provider Emergency Medicine Emergency Medical Services; PCP Family Medicine
DX: R10.11 Right upper quadrant pain (principal)
CPT/HCPCS: 36415; 76705; 80048; 80076; 85025; 86140; 99284